=== PATIENT | female | born 1965 | race Caucasian/White ===

== ENCOUNTER → 2020-08-13 10:17 | Outpatient (CLI) | payer MEDICARE, MEDICAID ==
--- NOTE | 2020-08-17 08:00 | EC ---
PATIENT:ZENON COPE DATE OF SERVICE: 08/13/20 SEX: F MEDICAL RECORD: [id number] DATE OF : [birth year] LOCATION:[facility] AGE OF PATIENT: 55 ADMISSION DATE: 08/13/20 REFERRING PHYSICIAN: INTERPRETING PHYSICIAN: MANDIE KING MD ECHOCARDIOGRAM REPORT ECHO CHARGES 4 ECHO COMPLETE Date: 08/13/20 CLINICAL DIAGNOSIS: ESS.HTN/HEART MURMUR ECHOCARDIOGRAPHIC MEASUREMENTS (adult normal given) AC root (d.<3.7cm) 3.1 cm LV Septum d (<1.2 cm> 1.2 cm Valve Excursion 1.9 cm LV Septum (systole) 1.4 cm Left Atria (s.<4.0cm> 3.9 cm LVPW d(<1.2cm) 1.3 cm RV (d.<2.3cm) 3.7 cm LVPW (sytole) 1.5 cm LV diastole(<5.6CM) 4.7 cm MV E-F(>70mm/sec) cm LV systole 3.4 cm LVOT Diameter 2.1 cm MV exc.(>10mm) 1.5 cm Est.ejection fraction (50-75%) % DOPPLER: LVIT cm/sec A 61.0 cm/sec E 81.0 cm/sec LA cm/sec RVSP 30 mmHg LVOT 97 cm/sec AOP1/2T m/s Asc. Ao 121 cm/sec RVOT 70 cm/sec RA cm/sec PA 83 cm/sec AV Gradient Peak 5.86 mmHg AV Mean 2.73 mmHg AV Area 3.0 cm MV Gradient Peak 4.04 mmHg MV Mean 1.25 mmHg MV Area cm COMMENTS: Yarn Tester: 2 GIN GARCIA Parking Cashier: 3 Dr. Eddy TAPE# PACS Pericardial Effusion N DATE OF SERVICE: Adequate 2D, color-flow imaging, spectral Doppler, and M-Mode FINDINGS: Mild LVH. LV internal dimensions are normal. Wall motion is normal. EF is greater than or equal to 55%. Aortic valve is tricuspid. No evidence of stenosis by Doppler interrogation. Left atrium is normal at 3.9 cm. Mitral valve shows no prolapse. Trace MR. Right side is grossly normal. Trace TR. TRANSINT:[id number] Voice Confirmation ID: [id number] DOCUMENT ID: [id number] ECHOCARDIOGRAM REPORT [id number] ZENON COPE,MANDIE See MD at 0800 CC: [id number] DICTATION DATE: 08/14/20 1143 DIP GUIDER STOVES: 08/14/20 1552 DEP CLI 08/13/20 [place] [id number] [place] [id number]
== END | disposition home or self-care (01) ==
LOC: D.HCCECHO 10:17
PROVIDERS: ATTEND Internal Medicine Interventional Cardiology
DX: I10 Essential (primary) hypertension (principal)